=== PATIENT | male | born 1965 | race Two or more races ===

== ENCOUNTER → 2020-02-01 | Outpatient (CLI) | payer BC ==
[2020-02-01 09:12] LABS: SPERM MORPHOLOGY SENT TO REFERENC LAB
[2020-02-01 09:52] LABS: SPERM CONCENTRATION 11.2 X10^6/mL (>12.0); TOTAL SPERM COUNT 35.8 X10^6 (>33.0)
[2020-02-01 09:53] LABS: SPERM PROGRESSION 2
== END ==
LOC: OD 07:20
PROVIDERS: ATTEND Student in an Organized Health Care Education/Training Program
DX: N46.9 Male infertility, unspecified (principal)
CPT/HCPCS: 89320